=== PATIENT | male | born 1985 | race Caucasian/White ===

== ENCOUNTER 2018-10-15 01:53 | Emergency (ER) | payer SELFPAY ==
[~2018-10-15] VITALS: Ht 162.6 cm; Wt 60.9 kg
[2018-10-15 02:44] LABS: PLATELET COUNT 283 x10^3mcL (130-400); RED CELL DISTRIBUTION WIDTH 11.8 % (11.5-14.5)
[2018-10-15 02:45] LABS: BASOPHIL % 2.7 % (0-2)
[2018-10-15 02:51] LABS: CALCIUM 10.6 mg/dL (8.5-10.1); CARBON DIOXIDE 22.6 mmol/L (21-32); CHLORIDE SERUM 94 mmol/L (98-107); CREATININE SERUM 1.1 mg/dL (0.7-1.3); GFR1 > 60 mL/min; GLUCOSE SERUM 140 mg/dL (74-106); POTASSIUM SERUM 3.2 mmol/L (3.5-5.1); SODIUM SERUM 142 mmol/L (136-145)
[2018-10-15 03:03] LABS: ALBUMIN 5.4 g/dL (3.4-5.0); ALKALINE PHOSPHATASE 65 U/L (46-116); ALT/SGPT 45 U/L (16-63); AST/SGOT 43 U/L (15-37); BILIRUBIN TOTAL 1.15 mg/dL (0.20-1.00); LIPASE 58 IU/L (73-393); TOTAL PROTEIN, SERUM 8.8 g/dL (6.4-8.2)
[2018-10-15 04:53] VITALS: BP 124/79
== END 2018-10-15 04:53 | disposition home or self-care (01) ==
LOC: ED 01:53
PROVIDERS: Emergency Medicine
DX: R10.13 Epigastric pain (principal); R11.0 Nausea
CPT/HCPCS: J2270; J2405; J7030

== ENCOUNTER 2018-10-15 12:16 | Emergency (ER) | payer MEDICAID ==
[~2018-10-15] VITALS: Ht 170.2 cm; Wt 62.1 kg
[2018-10-15 12:37] VITALS: Ht 170.2 cm; Wt 62.1 kg
[2018-10-15 15:29] LABS: BASOPHIL % 1.7 % (0-2); PLATELET COUNT 208 x10^3mcL (130-400); RED CELL DISTRIBUTION WIDTH 12.6 % (11.5-14.5)
[2018-10-15 15:41] LABS: CALCIUM 9.7 mg/dL (8.5-10.1); CARBON DIOXIDE 28.4 mmol/L (21-32); CHLORIDE SERUM 99 mmol/L (98-107); CREATININE SERUM 0.8 mg/dL (0.7-1.3); GFR1 > 60 mL/min; GLUCOSE SERUM 127 mg/dL (74-106); POTASSIUM SERUM 3.5 mmol/L (3.5-5.1); SODIUM SERUM 141 mmol/L (136-145)
[2018-10-15 15:46] LABS: ALBUMIN 4.6 g/dL (3.4-5.0); ALKALINE PHOSPHATASE 56 U/L (46-116); ALT/SGPT 38 U/L (16-63); AMYLASE 86 U/L (25-115); AST/SGOT 32 U/L (15-37); BILIRUBIN TOTAL 1.42 mg/dL (0.20-1.00); LIPASE 126 IU/L (73-393); TOTAL PROTEIN, SERUM 7.7 g/dL (6.4-8.2)
[2018-10-15 16:10] LABS: AMPHETAMINE QUAL UR NONE DETECTED (See below)
[2018-10-15 17:59] VITALS: BP 121/59
== END 2018-10-15 18:00 | disposition home or self-care (01) ==
LOC: ED 12:16
PROVIDERS: Emergency Medicine
DX: K29.70 Gastritis, unspecified, without bleeding (principal); F12.90 Cannabis use, unspecified, uncomplicated; F10.99 Alcohol use, unspecified with unspecified alcohol-induced disorder
CPT/HCPCS: J1885; J2405; J7030; Q0092